=== PATIENT | male | born 1965 | race Caucasian/White ===

== ENCOUNTER 2018-04-04 21:27 | Inpatient (IN) | payer OTHER ==
[2018-04-04] MEDS ORDERED: HYDROcodone/APAP 5/325MG 1 TAB TABLET PO (22:15)
[2018-04-04] MEDS ORDERED: ONDANSETRON PF 4 MG/2 ML VIAL. IV (22:15)
[2018-04-04] MEDS: DIGOXIN IV 500 MCG/2 ML AMPUL. IV (22:26)
[2018-04-04] MEDS: HEPARIN 25,000UTS/500ML PREMIX 500 ML IV (22:37)
[2018-04-04] MEDS ORDERED: dilTIAZem INJ 125 MG in IV DEXTROSE 5% 100ML 100 ML IV (22:45)
[2018-04-05] MEDS: DIGOXIN IV 500 MCG/2 ML AMPUL. IV (02:05)
[2018-04-05 04:48] LABS: ADD MAN DIFF? NO
[2018-04-05 04:53] LABS: BASO # 0.1 x10^3/uL (0.0-0.2); BASO % 1 % (0-3); EOS # 0.2 x10^3/uL (0.0-0.7); EOS % 2 % (0-3); HEMATOCRIT 44.4 % (39.0-53.0); LYMPH # 2.2 x10^3/uL (1.0-4.8); LYMPH % 25 % (24-48); MEAN CORPUSCULAR HEMOGLOBIN 30 pg (25-35); MEAN CORPUSCULAR HGB CONC 34 g/dL (31-37); MEAN CORPUSCULAR VOLUME 90 fL (79-100); MONO # 0.8 x10^3/uL (0.0-1.1); MONO % 9 % (0-9); NEUT # 5.6 x10^3uL (1.8-7.7); NEUT % 63 % (31-73); PLATELET COUNT 158 x10^3/uL (140-400); RED BLOOD COUNT 4.92 x10^6/uL (4.30-5.70); RED CELL DISTRIBUTION WIDTH 13.2 % (11.5-14.5); WHITE BLOOD COUNT 8.8 x10^3/uL (4.0-11.0)
[2018-04-05 04:59] LABS: INR 1.1 (0.8-1.1); PROTHROMBIN TIME PATIENT 13.6 SEC (11.7-14.0)
[2018-04-05 05:08] LABS: ANION GAP 9 (6-14); BLOOD UREA NITROGEN 16 mg/dL (8-26); CALCIUM 8.2 mg/dL (8.5-10.1); CARBON DIOXIDE 27 mmol/L (21-32); CHLORIDE 105 mmol/L (98-107); CREATININE 1.2 mg/dL (0.7-1.3); GFR 63.1; GLUCOSE 100 mg/dL (70-99); MAGNESIUM 1.9 mg/dL (1.8-2.4); POTASSIUM 3.7 mmol/L (3.5-5.1); SODIUM 141 mmol/L (136-145)
[2018-04-05 05:25] LABS: TROPONINI < 0.017 ng/mL (0.000-0.055)
[2018-04-05 05:37] LABS: THYROID STIM HORMONE (TSH) 1.992 uIU/mL (0.358-3.74)
[2018-04-05 05:41] LABS: UNFRACTIONATED HEPARIN TESTING 0.16 IU/mL (0.30-0.70)
[2018-04-05] MEDS: HEPARIN for IV BOLUS 10,000 UNIT/10 ML VIAL. IV (05:48)
[2018-04-05] MEDS: ANTI-COAG MONITOR BY PHARMACY. MC (07:42)
[2018-04-05] MEDS ORDERED: AMIODARONE 900 MG in IV DEXTROSE 5% 500 ML IV ×2 (08:15→08:30)
[2018-04-05] MEDS: IV NORMAL SALINE 1000ML BAG 1,000 ML IV ×2 (08:15→18:15)
[2018-04-05] MEDS: AMIODARONE 150 MG in IV DEXTROSE 5% 100ML 100 ML IV (08:54)
[2018-04-05 09:26] LABS: CHOLESTEROL 149 mg/dL (0-200); HDLC 31 mg/dL (40-60); LDLC 95 mg/dL (0-100); NON-HDL CHOLESTEROL 118 mg/dL (0-129); TRIGLYCERIDES 113 mg/dL (0-150); VLDLC 23 mg/dL (0-40)
[2018-04-05 09:27] LABS: CHOLESTEROL/HDL RATIO 4.8
[2018-04-05] MEDS: METOPROLOL TART IMMED RELEASE 25 MG TABLET. PO (10:54)
[2018-04-05 12:36] LABS: UNFRACTIONATED HEPARIN TESTING 0.59 IU/mL (0.30-0.70)
[2018-04-05] MEDS ORDERED: LIDOCAINE 2% TOPICAL JELLY 5GM TUBE. TP (13:18)
[2018-04-05] MEDS ORDERED: BENZOCAINE ONE 20% MUCOSAL SPRAY. (13:18)
[2018-04-05] MEDS ORDERED: LIDOCAINE 2% VISCOUS 15 ML SOLUTION. (13:18)
[2018-04-05] MEDS ORDERED: PROPOFOL 40 ML IV (13:21)
[2018-04-05] MEDS: LIDOCAINE 2% VISCOUS 15 ML SOLUTION. SWSW (14:15)
[2018-04-05] MEDS: BENZOCAINE ONE 20% MUCOSAL SPRAY. MM (14:15)
[2018-04-05] MEDS: LIDOCAINE 2% TOPICAL JELLY 5GM TUBE. TP (14:15)
[2018-04-05] MEDS: APIXABAN 5 MG TABLET. PO (21:52)
[2018-04-05] MEDS: FLECAINIDE ACETATE 50 MG TABLET. PO (21:53)
[2018-04-06 00:50] LABS: BARBITURATES NEG (NEG); BENZODIAZEPINES NEG (NEG); CANNABINOIDS NEG (NEG); COCAINE NEG (NEG); METHADONE NEG (NEG); OPIATES NEG (NEG); PHENCYCLIDINE NEG (NEG)
[2018-04-06 00:52] LABS: AMPHETAMINE/METHAMPHETAMINE NEG (NEG); ETHANOL, URINE NEG (NEG)
[2018-04-06] MEDS: IV NORMAL SALINE 1000ML BAG 1,000 ML IV (04:15)
[2018-04-06] MEDS: FLECAINIDE ACETATE 50 MG TABLET. PO (08:38)
[2018-04-06] MEDS: APIXABAN 5 MG TABLET. PO (08:38)
[2018-04-06] MEDS: METOPROLOL TART IMMED RELEASE 25 MG TABLET. PO (12:41)
== END 2018-04-06 15:40 | disposition home or self-care (01) | DRG 189 ==
LOC: 2 SOUTH 21:27
PROC: 5A2204Z Restoration of Cardiac Rhythm, Single (ICD-10-PCS; principal; 2018-04-04)
DX: J96.20 Acute and chronic respiratory failure, unspecified whether with hypoxia or hypercapnia (principal); I48.91 Unspecified atrial fibrillation; G47.33 Obstructive sleep apnea (adult) (pediatric); Z82.49 Family history of ischemic heart disease and other diseases of the circulatory system; Z83.3 Family history of diabetes mellitus
CPT/HCPCS: 36415; 76376; 80048; 80061; 80307; 83735; 84443; 84484; 85025; 85520; 85610; 92960; 93005; 93306; 93320; 93325; J0282; J1160; J1644; J2704; J7030